=== PATIENT | male | born 1960 | race Caucasian/White ===

== ENCOUNTER 2017-07-14 13:39 | Emergency (ER) | payer OTHER, BC ==
[2017-07-14 13:40] VITALS: BP 159/94; PULSE 93; RESP 16; TEMP 97.4; O2SAT 97
--- NOTE | 2017-07-14 15:26 | PD ---
HPI Chief Complaint: Edema Time Seen by Provider: 14:46 Travel History International Travel<30 days: No Contact w/Intl Traveler<30days: No Traveled to known affect area: No History of Present Illness HPI 57-year-old male presents emergency department with swelling to the left lower jaw past several days. He states is mildly tender. He states no fever chills, or dental injury that he is aware of. Patient is from [facility], and on his way home, but wanted to get this checked out. He denies difficulty swallowing or sore throat. Pain is minimal at 4-5 out of 10. He has no other symptoms. He has no known drug allergies PFSH Social History Alcohol Use: No Tobacco Use: No Substance Use: No Allergies-Medications (Allergen,Severity, Reaction): Coded Allergies: No Known Allergies (Unverified , 07/14/17) Reported Meds & Prescriptions Reported Meds & Active Scripts Active No Active Prescriptions or Reported Medications Review of Systems Except as stated in HPI: all other systems reviewed are Neg General / Constitutional: No: Fever Eyes: No: Visual changes HENT: Positive: Other, No: Headaches, Vertigo, Lightheadedness, Sore Throat, Rhinitis, Rhinorrhea, Congestion, Nosebleed, Neck Stiffness, Neck Pain, Dental Difficulties, Earache (See history of present) Cardiovascular: No: Chest Pain or Discomfort Respiratory: No: Shortness of Breath Gastrointestinal: No: Abdominal Pain Genitourinary: No: Dysuria Musculoskeletal: No: Pain Skin: No Rash Neurologic: No: Weakness Psychiatric: No: Depression Endocrine: No: Polydipsia Hematologic/Lymphatic: No: Easy Bruising Physical Exam Narrative GENERAL: Patient appears in no acute distress per SKIN: Warm and dry. Normal color. Normal turgor HEAD: Atraumatic. Normocephalic. Patient has pronounced obvious swelling over the left parotid salivary gland, as well as some mild swelling of the submandibular salivary glands. EYES: Pupils equal and round. No scleral icterus. No injection or drainage. ENT: No nasal bleeding or discharge. Mucous membranes pink and moist. TMs are clear bilaterally. Teeth are actually in good repair no signs of abscess. No obvious stone is appreciated with palpation under the tongue. Pharynx is clear. Airways patent. Uvula is midline. NECK: Trachea midline. Supple and nontender. No significant lymphadenopathy CARDIOVASCULAR: Regular rate and rhythm. RESPIRATORY: No accessory muscle use. Clear to auscultation. Breath sounds equal bilaterally. GASTROINTESTINAL: Abdomen soft, non-tender, nondistended. Hepatic and splenic margins not palpable. MUSCULOSKELETAL: Extremities without clubbing, cyanosis, or edema. No obvious deformities. NEUROLOGICAL: Awake and alert. No obvious cranial nerve deficits. Motor grossly within normal limits. Five out of 5 muscle strength in the arms and legs. Normal speech. PSYCHIATRIC: Appropriate mood and affect; insight and judgment normal. Data Data Last Documented VS Vital Signs Date Time Temp Pulse Resp B/P (MAP) Pulse Ox O2 Delivery O2 Flow Rate FiO2 07/14/17 13:40 97.4 93 16 159/94 (115) 97 Orders Orders Complete Blood Count With Diff (07/14/17 13:47) Basic Metabolic Panel (Bmp) (07/14/17 13:47) MDM Medical Decision Making Medical Screen Exam Complete: Yes Emergency Medical Condition: Yes Differential Diagnosis Dental abscess. Sialolithiasis. Lymphoma. Abscess. Narrative Course Patient is medically stable at time of exam. Patient is discussed and seen with Dr. Kendrick who agrees that this is more than likely sialolithiasis. Patient is covered with clindamycin 300 mg 3 times daily 7 days. Patient also given ibuprofen 800 mg 3 times daily with food #30. Recommend frequent lemon drops to promote salivation. Patient is to follow-up with an ear nose and throat physician upon return home if symptoms do not improve or worsen as discussed per Diagnosis Primary Impression: Parotid sialolithiasis Referrals: Ear / Nose / Throat Specialist Patient Instructions: General Instructions, Parotid Duct Obstruction (ED) Additional Instructions: Patient is discussed and seen with Dr. Kendrick who agrees that this is more than likely sialolithiasis. Patient is covered with clindamycin 300 mg 3 times daily 7 days. Patient also given ibuprofen 800 mg 3 times daily with food #30. Recommend frequent lemon drops to promote salivation. Patient is to follow-up with an ear nose and throat physician upon return home if symptoms do not improve or worsen as discussed per Med/Other Pt SpecificInfo: Prescription(s) given Scripts No Active Prescriptions or Reported Meds Disposition: DISCHARGE HOME Condition: Stable Pepe Heard Jul 14, 2017 15:26
[2017-07-14] MEDS ORDERED: IBUP1TAB7 PO (15:27)
[2017-07-14] MEDS ORDERED: CLIN300C5 PO (15:27)
[2017-07-14 16:06] LABS: AUTOMATED NEUTROPHIL # 5.7 TH/MM3 (1.8-7.7); BASOPHIL % 0.5 % (0.0-2.0); EOSINOPHIL # 0.2 TH/MM3 (0-0.4); EOSINOPHIL % 2.9 % (0.0-4.0); HEMATOCRIT 39.7 % (39.0-51.0); LYMPHOCYTE # 1.7 TH/MM3 (1.0-4.8); MEAN CELL VOLUME 92.5 FL (80.0-100.0); MEAN CORPUSCULAR HEMOGLOBIN 32.6 PG (27.0-34.0); MEAN CORPUSCULAR HGB CONC 35.3 % (32.0-36.0); MEAN PLATELET VOLUME 8.8 FL (7.0-11.0); MONO % 6.7 % (0.0-8.0); MONOCYTE # 0.6 TH/MM3 (0-0.9); NEUT % 68.9 % (16.0-70.0); PLATELET COUNT 241 TH/MM3 (150-450); RED BLOOD COUNT 4.29 MIL/MM3 (4.50-5.90); RED CELL DISTRIBUTION WIDTH 13.7 % (11.6-17.2); WHITE BLOOD COUNT 8.2 TH/MM3 (4.0-11.0)
[2017-07-14 16:15] LABS: BICARBONATE 23.1 MEQ/L (21.0-32.0); CALCIUM 8.3 MG/DL (8.5-10.1); CREATININE 1.03 MG/DL (0.60-1.30)
== END 2017-07-14 15:46 | disposition home or self-care (01) ==
LOC: NEPD 13:39
DX: K11.5 Sialolithiasis (principal)
CPT/HCPCS: 80048; 85025; 99283